=== PATIENT | male | born 1955 | race Two or more races ===

== ENCOUNTER → 2019-01-24 13:07 | Outpatient (CLI) | payer MEDICARE, OTHER ==
[2019-01-24 14:28] LABS: BASOPHILS 0.5 % (0-2); EOSINOPHILS 2.4 % (0-7); HEMATOCRIT 43.3 % (42.0-54.0); HEMOGLOBIN 14.7 g/dL (13.5-17.5); IMMATURE GRANULOCYTES 0.4 % (0-5); LYMPHOCYTES 33.9 % (15-50); MCH 28.5 pg (26.0-34.0); MCHC 33.9 g/dL (31.0-37.0); MCV 83.9 fL (80.0-100.0); MEAN PLATELET VOLUME 9.3 fL (7.4-10.4); MONOCYTES 9.5 % (2-11); NEUTROPHILS 53.3 % (40-80); PLATELET COUNT 344 10x3/uL (130-400); RBC 5.16 10x6/uL (4.20-6.10); RDW 15.5 % (11.5-14.5); WBC 7.8 10x3/uL (4.8-10.8)
[2019-01-24 14:42] LABS: ALBUMIN 3.9 g/dL (3.4-5.0); ANION GAP 10.8 mmol/L (8-16); BILIRUBIN - TOTAL 0.74 mg/dL (0.2-1.3); CALCIUM 9.1 mg/dL (8.5-10.1); CARBON DIOXIDE 28.2 mmol/L (21.0-32.0); CHOL - HDL RATIO 3.9 ratio (2.3-4.9); CREATININE - SERUM 1.1 mg/dL (0.6-1.3); LDL-HDL RATIO 2.4 ratio (1.5-3.5); PROTEIN - SERUM 8.4 g/dL (6.4-8.2); THYROID STIMULATING HORMONE 2.2 uIU/mL (0.36-3.74)
== END | disposition home or self-care (01) ==
LOC: D.LAB 13:07
PROVIDERS: ATTEND Family Medicine
DX: I25.10 Atherosclerotic heart disease of native coronary artery without angina pectoris (principal); G51.0 Bell's palsy; E78.81 Lipoid dermatoarthritis; I25.2 Old myocardial infarction

== ENCOUNTER → 2020-03-13 09:50 | Outpatient (CLI) | payer MEDICARE, OTHER ==
[2020-03-13 10:20] LABS: BASOPHILS 0.6 % (0-2); HEMATOCRIT 46.1 % (42.0-54.0); IMMATURE GRANULOCYTES 0.3 % (0-5); MCH 29.2 pg (26.0-34.0); MCHC 32.5 g/dL (31.0-37.0); MCV 89.9 fL (80.0-100.0); MEAN PLATELET VOLUME 9.4 fL (7.4-10.4); MONOCYTES 10.2 % (2-11); NEUTROPHILS 49.9 % (40-80); PLATELET COUNT 339 10x3/uL (130-400); RBC 5.13 10x6/uL (4.20-6.10); RDW 13.7 % (11.5-14.5); WBC 6.6 10x3/uL (4.8-10.8)
[2020-03-13 10:51] LABS: ALBUMIN 3.7 g/dL (3.4-5.0); ANION GAP 7.7 mmol/L (8-16); BILIRUBIN - TOTAL 0.38 mg/dL (0.2-1.3); C-REACTIVE PROTEIN 0.7 mg/dL (0.0-0.9); CALCIUM 8.6 mg/dL (8.5-10.1); CARBON DIOXIDE 30.4 mmol/L (21.0-32.0); CHOL - HDL RATIO 5.3 ratio (2.3-4.9); CREATININE - SERUM 1.1 mg/dL (0.6-1.3); LDL-HDL RATIO 3.4 ratio (1.5-3.5); POTASSIUM - SERUM 4.1 mmol/L (3.5-5.1); PROTEIN - SERUM 7.9 g/dL (6.4-8.2); THYROID STIMULATING HORMONE 1.75 uIU/mL (0.36-3.74)
== END | disposition home or self-care (01) ==
LOC: D.LAB 09:50
PROVIDERS: ATTEND Family Medicine
DX: Z00.00 Encounter for general adult medical examination without abnormal findings (principal); E78.81 Lipoid dermatoarthritis; I25.10 Atherosclerotic heart disease of native coronary artery without angina pectoris